=== PATIENT | male | born 1990 | race Asian ===

== ENCOUNTER 2017-02-01 03:53 | Emergency (ER) | payer MEDICAID ==
[~2017-02-01] VITALS: Ht 175.3 cm; Wt 74.8 kg
--- NOTE | 2017-02-01 04:00 | NUR ---
CALLED PT IN [place], NO RESPONSE
--- NOTE | 2017-02-01 04:20 | NUR ---
CALLED PT IN [place], NO RESPONSE
[2017-02-01 04:25] VITALS: BP 122/81
[2017-02-01] MEDS ORDERED: FLUORESCEIN SODIUM OPHTH 1 EA STRIP ONE (04:43)
[2017-02-01] MEDS ORDERED: TETRACAINE HCL/PF 0.5% UD 2 ML BOTTLE ONE (04:43)
[2017-02-01] MEDS ORDERED: HYDROCODONE/APAP 5/325MG 1 EACH TABLET PO ONE (05:30)
[2017-02-01] MEDS ORDERED: GENTAMICIN OPTH SOLN 0.3% 5 ML BOTTLE OP ONE (05:30)
[2017-02-01] MEDS ORDERED: TDAP [DIPH/PERTUSSIS/TET] 0.5 ML VIAL IM ONE ×2 (05:30→05:34)
[2017-02-01] MEDS ORDERED: HYDROCODONE/APAP 5/325MG 1 EACH TABLET ONE (05:33)
[2017-02-01] MEDS ORDERED: GENTAMICIN OPTH SOLN 0.3% 5 ML BOTTLE ONE (05:33)
[2017-02-01] MEDS ORDERED: MORPHINE SULFATE INJ 10 MG/ML DISP.SYRIN ONE (06:12)
[2017-02-01] MEDS ORDERED: MORPHINE SULFATE INJ 2 MG/ML DISP.SYRIN IV ONE (06:30)
== END 2017-02-01 06:19 | disposition home or self-care (01) ==
LOC: ER 03:55
DX: S05.01XA Injury of conjunctiva and corneal abrasion without foreign body, right eye, initial encounter (principal); X58.XXXA Exposure to other specified factors, initial encounter; Y93.89 Activity, other specified; Y92.89 Other specified places as the place of occurrence of the external cause; Y99.8 Other external cause status
CPT/HCPCS: 90471; 90715; 96374; 99284; A4606; J2270; Z7610